=== PATIENT | female | born 1970 | race Caucasian/White ===

== ENCOUNTER → 2017-04-08 | Outpatient (CLI) | payer OTHER | LOC: US 08:30 | DX: R10.11 Right upper quadrant pain (principal); E66.01 Morbid (severe) obesity due to excess calories; K76.89 Other specified diseases of liver; Z90.49 Acquired absence of other specified parts of digestive tract | CPT/HCPCS: 36415; 76705; 80076; 82150; 83690 ==

== ENCOUNTER 2021-03-04 23:32 | Emergency (ER) | payer OTHER ==
[~2021-03-04 23:32] MED LIST: BENTYL 20MG TAB20 MG PO; PREDNISONE20 MG PO; ZOFRAN ODT 4 MG4 MG PO
[2021-03-05] MEDS ORDERED: PERCOCET 5/325 T1 EA PO (01:49)
== END 2021-03-05 02:18 | disposition home or self-care (01) ==
LOC: ER1 23:32
DX: S43.402A Unspecified sprain of left shoulder joint, initial encounter (principal); E11.9 Type 2 diabetes mellitus without complications; Z88.1 Allergy status to other antibiotic agents; Z88.8 Allergy status to other drugs, medicaments and biological substances; F17.210 Nicotine dependence, cigarettes, uncomplicated; W19.XXXA Unspecified fall, initial encounter; Y92.009 Unspecified place in unspecified non-institutional (private) residence as the place of occurrence of the external cause
CPT/HCPCS: 73030; 73060; 99283

== ENCOUNTER → 2021-03-26 | Outpatient (CLI) | payer OTHER ==
[~2021-03-26] MED LIST changes: +PERCOCET 5/325 T1 EA PO
== END ==
LOC: US 13:30
DX: M25.562 Pain in left knee (principal); M17.12 Unilateral primary osteoarthritis, left knee
CPT/HCPCS: 73564; 93971

== ENCOUNTER → 2021-11-18 | Outpatient (CLI) | payer OTHER | LOC: KOH-I 14:06 | DX: M17.11 Unilateral primary osteoarthritis, right knee (principal) | CPT/HCPCS: 73562 ==

== ENCOUNTER 2022-03-01 15:45 | Inpatient (IN) | payer OTHER ==
[~2022-03-01] VITALS: Ht 160 cm; Wt 120.7 kg
[~2022-03-01 15:45] MED LIST changes: +GLIPIZIDE5 MG PO
[2022-03-01 16:44] LABS: HEMOGLOBIN 14.5 gm/dl (12.3-15.3); RED BLOOD COUNT 4.75 M/UL (4.00-5.10); WHITE BLOOD COUNT 7.8 K/UL (4.5-11.0)
[2022-03-01 17:13] LABS: BUN/CREATININE RATIO 12 (0-10)
[2022-03-02 03:38] LABS: RED BLOOD COUNT 4.62 M/UL (4.00-5.10); WHITE BLOOD COUNT 8.3 K/UL (4.5-11.0)
[2022-03-02 04:41] LABS: BUN/CREATININE RATIO 17 (0-10)
[2022-03-02] MEDS ORDERED: ARTHRITIS PAIN150 GM TP (10:56)
[2022-03-02] MEDS ORDERED: VITAMIN D21250 MCG PO (10:57)
[2022-03-02] MEDS ORDERED: FUROSEMIDE20 MG PO (10:58)
[2022-03-02] MEDS ORDERED: GABAPENTIN600 MG PO (10:58)
[2022-03-02] MEDS ORDERED: PROAIR HFA8.5 GM INH (10:59)
[2022-03-02] MEDS ORDERED: LEVETIRACETAM500 MG PO (10:59)
[2022-03-02] MEDS ORDERED: JARDIANCE25 MG PO (11:00)
[2022-03-02] MEDS ORDERED: LEVOCETIRIZINE D5 MG PO (11:01)
[2022-03-02] MEDS ORDERED: PROZAC 20 MG CA20 MG PO (11:01)
[2022-03-02] MEDS ORDERED: OMEPRAZOLE20 MG PO (11:02)
[2022-03-02] MEDS ORDERED: FLONASE 0.05% N16 GM (11:03)
[2022-03-02] MEDS ORDERED: LISINOPRIL5 MG PO (11:05)
[2022-03-02] MEDS ORDERED: ASPIRIN81 MG PO (13:29)
== END 2022-03-02 17:37 | disposition home or self-care (01) | DRG 92 ==
LOC: ER1 15:45 → CDU 17:39 → MED SURG 4 20:00
PROVIDERS: Emergency Medicine; ADMIT Internal Medicine
DX: R20.0 Anesthesia of skin (principal); Z68.42 Body mass index [BMI] 45.0-49.9, adult; R29.810 Facial weakness; G40.909 Epilepsy, unspecified, not intractable, without status epilepticus; Z20.822 Contact with and (suspected) exposure to COVID-19; I10 Essential (primary) hypertension; R73.03 Prediabetes; R51.9 Headache, unspecified; E66.01 Morbid (severe) obesity due to excess calories; Z79.01 Long term (current) use of anticoagulants; Z79.82 Long term (current) use of aspirin; Z98.890 Other specified postprocedural states
CPT/HCPCS: 0240U; 70450; 70496; 70498; 70551; 71045; 80048; 80053; 80061; 82550; 82553; 84484; 85025; 85027; 85610; 85652; 85730; 92610; 97161; 97165; 99285; Q9967